=== PATIENT | male | born 1985 | race Caucasian/White ===

== ENCOUNTER 2024-09-09 22:04 | Emergency (ER) | payer OTHER, SELFPAY ==
[2024-09-09 22:10] VITALS: BP 149/98; PULSE 100; RESP 20; TEMP 36.3; O2SAT 100
[2024-09-09 22:32] LABS: Basophils Percent Auto 0.8 % (0.2-1.2); Eosinophils Absolute Auto 0.2 K/mm3 (0-0.3); Eosinophils Percent Auto 3.5 % (0-4.4); Hematocrit 43.1 % (42.0-52.0); Hemoglobin 14.6 g/dL (14.0-18.0); Immature Granulocyte Absolute 0.02 K/mm3 (0.00-0.031); Immature Granulocyte Percent A 0.4 % (0-0.5); Lymphocytes Absolute Auto 1.58 K/mm3 (0.9-3.2); Lymphocytes Percent Auto 32.6 % (18.3-44.2); Mean Corpuscular HGB Conc 33.9 g/dl (32-36); Mean Corpuscular Hemoglobin 29.8 pg (26-34); Mean Platelet Volume 8.7 fl (7.4-10.4); Monocytes Absolute Auto 0.5 K/mm3 (0.1-0.6); Monocytes Percent Auto 10.1 % (2.6-8.5); Neutrophils Absolute Auto 2.5 K/mm3 (1.3-6.7); Neutrophils Percent Auto 52.6 % (45.5-73.1); Platelet Count Result 358 k/mm3 (150-375); Red Cell Distribution Width 12.4 % (11.5-14.5); White Blood Count 4.8 K/mm3 (4.5-10.0)
[2024-09-09 22:44] LABS: Alanine Aminotransferase 22 U/L (6-50); Albumin Level 4.8 g/dL (3.5-5.1); Alkaline Phosphatase 96 U/L (38-126); Anion Gap 13 mmol/L (4-12); Aspartate Amino Transferase 30 U/L (17-59); Bilirubin,Total 0.7 mg/dL (0.2-1.3); Blood Urea Nitrogen 17 mg/dL (9-20); Calcium 9.8 mg/dL (8.4-10.2); Carbon Dioxide 26 mmol/L (22-30); Chloride 100 mmol/L (98-107); Estimated CRCL calculation 100 ml/min; Estimated Glomerular Filt Rate > 60; Glucose 121 mg/dL (65-110); Lipase 75 U/L (23-300); Potassium 3.6 mmol/L (3.4-5.0); Sodium 139 mmol/L (137-145)
[2024-09-09 23:21] LABS: Add Urine Microscopic? NO; Appearance Urine Clear (Clear); Bilirubin Urine Negative (Negative); Blood Urine Negative (Negative); Color Urine Yellow (Yellow); Glucose Urine UA Negative (Negative); Ketones Urine Trace mg/dL (Negative); Leukocyte Esterase Ur Negative LEU/UL (Negative); Nitrate Urine Negative (Negative); Protein Urine Negative (Negative); Specific Grav Ur 1.024 (1.001-1.035); pH Urine 6.5 (5.0-9.0)
[2024-09-10] MEDS: SODIUM CHLORIDE 0.9% IV 1,000 ML 999 ML IV CONT (00:26)
--- NOTE | 2024-09-10 00:27 | ECG_ITS ---
Test Date: 2024-09-10 01:02:26 Measurements Intervals [place] Rate: 87 P: 58 MO: 166 QRS: 13 QRSD: 102 T: -13 QT: 352 QTc: 424 Interpretive Statements SINUS RHYTHM POSSIBLE LEFT ATRIAL ENLARGEMENT [-0.1mV P WAVE IN V1/V2] LOW QRS VOLTAGE IN PRECORDIAL LEADS [QRS DEFLECTION < 1.0 mV IN CHEST LEADS] NONSPECIFIC T-WAVE ABNORMALITY No previous ECG available for comparison Electronically Signed On 09-10-2024 10:43:47 PR MANAGER by Micheal Molina M.D.
[2024-09-10] MEDS: MORPHINE SULFATE (*CRX) 4 MG/ML INJ IV PUSH (00:32)
[2024-09-10] MEDS: FAMOTIDINE 20 MG/2 ML VIAL IV PUSH (00:32)
[2024-09-10] MEDS: ONDANSETRON INJ 4 MG/2 ML VIAL IV PUSH (00:32)
--- NOTE | 2024-09-10 00:36 | ED_ITS ---
HPI - Abdominal Pain General Chief Complaint: Abdominal Pain Stated Complaint: Upper R abd pain Time Seen by Provider: 09/10/24 00:04 Related Data Allergies Allergy/AdvReac Type Severity Reaction Status Date / Time No Known Allergies Allergy Verified 09/09/24 22:04 [facility] Family History Family History (System 01/24/24 @ 15:46 by Michael Patterson) Other Diabetes mellitus Family history of coronary artery disease Family history of malignant neoplasm of breast Malignant neoplasm of prostate Social History Social History (System 01/24/24 @ 15:46 by Michael Patterson) Smoking status: Never smoker Course Vital Signs Vital signs: Vital Signs Temperature 97.4 F L 09/09/24 22:10 Pulse Rate 100 09/09/24 22:10 Respiratory Rate 09/09/24 22:10 Blood Pressure 149/98 H 09/09/24 22:10 Pulse Oximetry 100 09/09/24 22:10 Oxygen Delivery Room Air 09/09/24 22:10 Temperature 97.4 F L 09/09/24 22:10 Pulse Rate 100 09/09/24 22:10 Respiratory Rate 09/09/24 22:10 Blood Pressure 149/98 H 09/09/24 22:10 Pulse Oximetry 100 09/09/24 22:10 Oxygen Delivery Room Air 09/09/24 22:10 MDM - Abdominal Pain Lab Data 09/09/24 22:15 09/09/24 22:15 Labs: Lab Results 09/09/24 09/09/24 Range/Units 22:15 23:09 WBC 4.8 (4.5-10.0) K/mm3 RBC 4.90 (4.6-6.20) M/mm3 Hgb 14.6 (14.0-18.0) g/dL Hct 43.1 (42.0-52.0) % MCV 88.0 (80-100) fl MCH 29.8 (26-34) pg MCHC 33.9 (32-36) g/dl RDW 12.4 (11.5-14.5) % Plt Count 358 (150-375) k/mm3 MPV 8.7 (7.4-10.4) fl Immature Gran % (Auto) 0.4 (0-0.5) % Neut % (Auto) 52.6 (45.5-73.1) % Lymph % (Auto) 32.6 (18.3-44.2) % [place] % (Auto) 10.1 H (2.6-8.5) % Eos % (Auto) 3.5 (0-4.4) % Baso % (Auto) 0.8 (0.2-1.2) % Lymph # (Auto) 1.58 (0.9-3.2) K/mm3 [place] # (Auto) 0.5 (0.1-0.6) K/mm3 Eos # (Auto) 0.2 (0-0.3) K/mm3 Baso # (Auto) 0.0 (0.0-0.1) K/mm3 Abs Immat Gran (auto) 0.02 (0.00-0.031) K/mm3 Absolute Neuts (auto) 2.5 (1.3-6.7) K/mm3 Absolute Nucleated RBC 0.000 (0.0-0.012) K/mm3 Nucleated RBC % 0.0 (0.0-0.2) % Sodium 139 (137-145) mmol/L Potassium 3.6 (3.4-5.0) mmol/L Chloride 100 (98-107) mmol/L Carbon Dioxide 26 (22-30) mmol/L Anion Gap 13 H (4-12) mmol/L BUN 17 (9-20) mg/dL Creatinine 0.92 (0.7-1.3) mg/dL Estim Creat Clear Calc 100 ml/min Estimated GFR > 60 (59 - ) Glucose 121 H (65-110) mg/dL Calcium 9.8 (8.4-10.2) mg/dL Total Bilirubin 0.7 (0.2-1.3) mg/dL AST 30 (17-59) U/L ALT 22 (6-50) U/L Alkaline Phosphatase 96 (38-126) U/L Total Protein 8.0 (6.3-8.2) g/dL Albumin 4.8 (3.5-5.1) g/dL Lipase 75 (23-300) U/L Urine Color Yellow (Yellow) Urine Appearance Clear (Clear) Urine pH 6.5 (5.0-9.0) Ur Specific [place] 1.024 (1.001-1.035) Urine Protein Negative (Negative) mg/dL Urine Glucose (UA) Negative (Negative) mg/dL Urine Ketones Trace H (Negative) mg/dL Ur Blood (Man) Negative (Negative) Urine Nitrate Negative (Negative) Urine Bilirubin Negative (Negative) Urine Urobilinogen 1.0 (<2.0) mg/dL Leukocyte Esterase Rfl Negative (Negative) DARRICK/UL Discharge Plan Discharge Instructions: Antibiotic Form Patient Language: Sami Follow-up/Referrals: Rudy Braswell MD [Primary Care Provider] -
--- NOTE | 2024-09-10 00:36 | ED_ITS ---
HPI - Abdominal Pain General Chief Complaint: Abdominal Pain Stated Complaint: Upper R abd pain Time Seen by Provider: 09/10/24 00:04 History of Present Illness HPI narrative: Patient is a 39-year-old male who presents to the emergency department this evening accompanied by his complaining of right upper quadrant abdominal pain. Patient describes the pain as sharp and stabbing. States that it started last night and then returned again this evening. does admit that the patient has a diet consistent of a lot of greasy food. She states that she recently had her gallbladder taking out and her symptoms are very similar to his symptoms. Patient denies any nausea or vomiting and any fevers or chills at home. No additional symptoms or concerns at this time. Related Data Allergies Allergy/AdvReac Type Severity Reaction Status Date / Time No Known Allergies Allergy Verified 09/09/24 22:04 Review of Systems 2 Review of Systems: All systems are reviewed and are negative unless stated otherwise in the HPI. PMFSH Family History Family History Other Diabetes mellitus Family history of coronary artery disease Family history of malignant neoplasm of breast Malignant neoplasm of prostate Social History Social History Smoking status: Never smoker Exam 2 Narrative: General: Alert, awake, afebrile, in no acute distress. HEENT: PERRL, no rhinorrhea, no post nasal drip, oropharynx clear. Neck: Trachea midline, no JVD, no lymphadenopathy. Cardiovascular: Regular rate and rhythm, no murmurs, rubs or gallops, no peripheral edema. Respiratory: Clear to auscultation bilaterally, no tachypnea, no wheezing, no rhonchi, no rubs, no respiratory distress. Abdomen: Soft, mild tenderness to palpation over the right upper quadrant, nondistended, no rebound, no guarding, no peritoneal signs. Musculoskeletal: No joint swelling or deformity, normal muscle tone. Skin: No rashes or petechia, no signs of infection. Psychiatric: Alert and oriented, normal behavior and judgment for situation. Neurological: Alert and oriented to person, place, and time. Follows all commands. No focal deficits, speech is clear and fluent. Course Vital Signs Vital signs: Vital Signs Temperature 97.4 F L 09/09/24 22:10 Pulse Rate 100 09/09/24 22:10 Respiratory Rate 20 09/09/24 22:10 Blood Pressure 149/98 H 09/09/24 22:10 Pulse Oximetry 100 09/09/24 22:10 Oxygen Delivery Room Air 09/09/24 22:10 Temperature 97.4 F L 09/09/24 22:10 Pulse Rate 77 09/10/24 01:32 Respiratory Rate 15 09/10/24 01:32 Blood Pressure 136/80 09/10/24 01:32 Pulse Oximetry 100 09/10/24 01:32 Oxygen Delivery Room Air 09/09/24 22:10 MDM - Abdominal Pain MDM Narrative Medical decision making narrative: The patient was evaluated by myself in the emergency department. History is obtained from patient who is an independent historian and physical exam was performed. External medical records were reviewed at this time. IV was established and pertinent tests were ordered. Patient was administered 4 mg of IV morphine for pain and 4 mg IV Zofran for nausea, 20 mg of IV Pepcid, and 1 L IV fluid bolus with normal saline. EKG was obtained which revealed sinus rhythm rate of 87 beats per minute, no evidence of acute ischemia. EKG was independently interpreted by me and is currently pending official cardiology read. Laboratory results obtained revealing no acute process. At this time, medical decision-making with the patient regarding obtaining CT abdomen and pelvis with IV contrast for further evaluation of his symptoms was discussed. Patient does not want wait for CT and is agreeable with following up with GI as an outpatient or his primary care physician to obtain a right upper quadrant ultrasound. Differential diagnosis considerations include biliary colic, cholecystitis, pancreatitis, gastritis. Comorbidities impacting this visit include none. I have evaluated and discussed social determinants of health with the patient that could potentially impact subsequent diagnosis and treatment plans. On repeat assessment of the patient, reevaluation revealed that the patient is doing well and is in no acute distress. Patient symptoms have improved since he arrived to our emergency department. Repeat vital signs were all reviewed and noted to be stable. Differential diagnosis and treatment plan were discussed with the patient at bedside. Patient agrees with discussion and after shared medical decision making agrees with discharge. All questions were answered to the patient's satisfaction. Patient will follow up with GI in 3-5 days. Patient was provided with strict return precautions and instructed to return to the emergency department if any new or worsening symptoms develop. The patient was discharged in stable condition. Lab Data 09/09/24 22:15 09/09/24 22:15 Labs: Lab Results 09/09/24 09/09/24 Range/Units 22:15 23:09 WBC 4.8 (4.5-10.0) K/mm3 RBC 4.90 (4.6-6.20) M/mm3 Hgb 14.6 (14.0-18.0) g/dL Hct 43.1 (42.0-52.0) % MCV 88.0 (80-100) fl MCH 29.8 (26-34) pg MCHC 33.9 (32-36) g/dl RDW 12.4 (11.5-14.5) % Plt Count 358 (150-375) k/mm3 MPV 8.7 (7.4-10.4) fl Immature Gran % (Auto) 0.4 (0-0.5) % Neut % (Auto) 52.6 (45.5-73.1) % Lymph % (Auto) 32.6 (18.3-44.2) % [place] % (Auto) 10.1 H (2.6-8.5) % Eos % (Auto) 3.5 (0-4.4) % Baso % (Auto) 0.8 (0.2-1.2) % Lymph # (Auto) 1.58 (0.9-3.2) K/mm3 [place] # (Auto) 0.5 (0.1-0.6) K/mm3 Eos # (Auto) 0.2 (0-0.3) K/mm3 Baso # (Auto) 0.0 (0.0-0.1) K/mm3 Abs Immat Gran (auto) 0.02 (0.00-0.031) K/mm3 Absolute Neuts (auto) 2.5 (1.3-6.7) K/mm3 Absolute Nucleated RBC 0.000 (0.0-0.012) K/mm3 Nucleated RBC % 0.0 (0.0-0.2) % Sodium 139 (137-145) mmol/L Potassium 3.6 (3.4-5.0) mmol/L Chloride 100 (98-107) mmol/L Carbon Dioxide 26 (22-30) mmol/L Anion Gap 13 H (4-12) mmol/L BUN 17 (9-20) mg/dL Creatinine 0.92 (0.7-1.3) mg/dL Estim Creat Clear Calc 100 ml/min Estimated GFR > 60 (59 - ) Glucose 121 H (65-110) mg/dL Calcium 9.8 (8.4-10.2) mg/dL Total Bilirubin 0.7 (0.2-1.3) mg/dL AST 30 (17-59) U/L ALT 22 (6-50) U/L Alkaline Phosphatase 96 (38-126) U/L Total Protein 8.0 (6.3-8.2) g/dL Albumin 4.8 (3.5-5.1) g/dL Lipase 75 (23-300) U/L Urine Color Yellow (Yellow) Urine Appearance Clear (Clear) Urine pH 6.5 (5.0-9.0) Ur Specific [place] 1.024 (1.001-1.035) Urine Protein Negative (Negative) mg/dL Urine Glucose (UA) Negative (Negative) mg/dL Urine Ketones Trace H (Negative) mg/dL Ur Blood (Man) Negative (Negative) Urine Nitrate Negative (Negative) Urine Bilirubin Negative (Negative) Urine Urobilinogen 1.0 (<2.0) mg/dL Leukocyte Esterase Rfl Negative (Negative) DARRICK/UL Discharge Plan Discharge Clinical Impression: Abdominal pain, acute, right upper quadrant Patient Disposition: Home, Self-Care Condition: Improved Instructions: Antibiotic Form, Biliary Colic (ED), Abdominal Pain (ED) Additional Instructions: Please follow-up with the GI doctor you were provided with today. Return to the ED if any new or worsening symptoms develop. In the meantime, refrain from eating greasy/fatty food. You may need an outpatient gallbladder ultrasound for further evaluation of your gallbladder. Patient Language: Kiswahili Follow-up/Referrals: Rudy Braswell MD [Primary Care Provider] - 1 Week Dell Bourgeois MD [Physician] - 3 Days Time of Disposition: 00:53
[2024-09-10 01:32] VITALS: BP 136/80; PULSE 77; RESP 15; O2SAT 100
--- OUTSIDE RECORDS SUMMARY | 2024-09-12 15:09 | XMS_ITS | Patient Health Summary ---
Author Organization [facility] Address [address] [place] [address] Care Team Providers Care Supervisor Metal Fabricating Name Role Phone Robert Howell MD Primary Care Provider [phone] Note from [facility],non-owned Affiliates and Associated Physician Practices is amultiple site organization consisting of ambulatory clinics and hospital sitesin [place], [place], [place] and [place]. This disclosure is being madepursuant to the Care Everywhere program and may not contain all information available regarding this patient. Last updated 18.[facility] Allergies No known active allergies Immunizations * INFLUENZA VACCINE, QUADR. (FLUZONE; FLULAVAL; FLUARIX; AFLURIA QUADRIVALENT; 6MO+), 0.5 ML (IIV4)(Given 06/01/2018) Social History Tobacco Use Types Packs/Day Years Used Date Smoking Tobacco: Never Assessed Sex and Gender Information Value Date Recorded Sex Assigned at Not on file Gender Identity Not on file Sexual Orientation Not on file Care Teams Supervisor Metal Fabricating Relationship Specialty Start Date End Date Robert Howell MD PCP - General Internal Medicine 06/01/18
--- OUTSIDE RECORDS SUMMARY | 2024-09-12 15:09 | XMS_ITS | Clinical Summary ---
Author Organization [facility] Address [address] [place] [address]. [place], [place] [id number] [place] [id number] Care Team Providers Care Managed Care Specialist Name Role Phone Unavailable Primary Care Provider Unavailabl e Social History Tobacco Use Types Packs/Day Years Used Date Smoking Tobacco: Never Assessed Sex and Gender Information Value Date Recorded Sex Assigned at Not on file Legal Sex Male 4:33 PM CDT Gender Identity Not on file Sexual Orientation Not on file Plan of Treatment Health Maintenance Due Date Last Done Comments Annual Physical 02/21/1987 Hepatitis C 02/21/2002 DTaP, Tdap and Td Vaccines ( 1 - Tdap) 02/21/2003 Hepatitis B Vaccines (1 of 3 - 19+ 3-dose series) 02/21/2003 COVID-19 Vaccine (2023-2 5 season) 2024 Influenza Adult (#1) 2024 HPV Vaccines Aged Out No longer eligi ble based on patient's age to complete this topic Meningococcal Vaccine Aged Out No desiree miracle eligible based on patient's age to complete this topic Pneumococcal Vaccine: Pediat rics (0 to 5 Years) and At-Risk Patients (6 to 64 Years) Aged Out No longer eligible b ased on patient's age to complete this topic RSV Immunizations Under 20 Months Aged Out No longer eligible based on patient's age to complete this topic
--- OUTSIDE RECORDS SUMMARY | 2024-09-12 15:09 | XMS_ITS | Clinical Summary ---
Author Organization [facility] Address [address] [place] [address] Care Team Providers Care Dental Specialist Name Role Phone Robert Howell MD Primary Care Provider [phone] Source Comments [facility],non-owned Affiliates and Associated Physician Practices is amultiple site organization consisting of ambulatory clinics and hospital sitesin [place], [place], [place] and [place]. This disclosure is being madepursuant to the Care Everywhere program and may not contain all information available regarding this patient. Last updated 18.[facility] [employer] Allergies No known active allergies Immunizations Name Administration Dates Next Due INFLUENZA VACCINE, QUADR. (F LUZONE; FLULAVAL; FLUARIX; AFLURIA QUADRIVALENT; 6MO+), 0.5 ML (IIV4) 06/01/2018 Social History Tobacco Use Types Packs/Day Years Used Date Smoking Tobacco: Never Assessed Sex and Gender Information Value Date Recorded Sex Assigned at Not on file Gender Identity Not on file Sexual Orientation Not on file Plan of Treatment Health Maintenance Due Date Last Done Comments LIPID TESTING 1984 HIV SCREENING 02/21/1999 HEPATITIS C SCREENING 02/17/2002 DTAP/TDAP/TD VACCINES (1 - Tdap) 02/21/2003 HEPATITIS B VACCINE (1 of 3 - 19+ 3-dose series) 02/21/2003 COVID-19 VACCINE ( - 2023-2 5 season) 2024 INFLUENZA VACCINE (#1) 2024 06/01/2018 DEPRESSION SCREENING 08/21/2024 ZOSTER VACCINE (1 of 2) 02/21/2034 HIB VACCINE Aged Out No longer eligi ble based on patient's age to complete this topic HPV VACCINE Aged Out No longer eligi ble based on patient's age to complete this topic MENINGOCOCCAL (Group B) VACCINE Aged Out No longer eligible based on patient's age to complete this topic MENINGOCOCCAL VACCINE Aged Out No desiree miracle eligible based on patient's age to complete this topic PNEUMOCOCCAL VACCINE Aged Out No long er eligible based on patient's age to complete this topic Care Teams Dental Specialist Relationship Specialty Start Date End Date Robert Howell MD PCP - General Internal Medicine 06/01/18
--- OUTSIDE RECORDS SUMMARY | 2024-09-12 15:09 | XMS_ITS | Referral Summary ---
Author Organization [facility] Address [address] [place] [address] Care Team Providers Care Gamb Cutter Name Role Phone No, Physician Primary Care Provider [phone] No, Physician Unavailable Encounters Date Type Department Care Team Description 09/10/2024 Orders Only [facility] [address] [place] [address] [address] [place] [address] Robert Howell MD from Last 3 Months Allergies No known active allergies Medications No known medications Active Problems No known active problems Social History Tobacco Use Types Packs/Day Years Used Date Smoking Tobacco: Never Tobacco Cessation:Counseling Given: Not Answered Sex and Gender Information Value Date Recorded Sex Assigned at Not on file Legal Sex Male 10:27 AM ANODE BUILDER Gender Identity Male 08/04/2022 1:42 PM ANODE BUILDER Sexual Orientation Straight 08/04/2022 1: 42 PM ANODE BUILDER Last Filed Vital Signs Vital Sign Reading Time Taken Comments Blood Pressure 119/86 08/04/2022 9:37 AM ANODE BUILDER Pulse 101 08/04/2022 9:37 AM ANODE BUILDER Temperature 36.8 ??C (98.3 ??F) 08/04/2022 9:37 AM CS T Respiratory Rate 16 08/04/2022 9:37 AM ANODE BUILDER Oxygen Saturation 95% 08/04/2022 9:37 AM ANODE BUILDER Inhaled Oxygen Concentration - - Weight 91.2 kg (201 lb) 08/04/2022 9:37 AM ANODE BUILDER Height 177.8 cm (5' 10 ) 08/04/2022 9:37 AM ANODE BUILDER Body Mass Index 28.84 08/04/2022 9:37 AM ANODE BUILDER Plan of Treatment Not on file Procedures Procedure Name Priority Date/Time Associated Diagnosis Comments SCAN - LABS 09/10/2024 8:46 AM ANODE BUILDER from Last 3 Months Results * SCAN - LABS (09/10/2024 8:46 AM ANODE BUILDER) Robert Howell MD Final Result from Last 3 Months Insurance [facility] CHO[facility] PLUS [facility] [place] Address: [place] [address] [employer] [place] [employer] Address: [id number] [place] [address] [facility] [employer] [facility] [place] Address: [address] [address] [place] [address] [facility] [employer] [facility] [place] Address: [address] [address] [place] [phone] Care Teams Gamb Cutter Relationship Specialty Start Date End Date No, Physician PCP - General 08/04/22 No, Physician 08/04/22
--- OUTSIDE RECORDS SUMMARY | 2024-09-12 15:09 | XMS_ITS | Clinical Summary ---
Author Organization [facility] Address [address] [place] [address] Care Team Providers Care Devops Developer Name Role Phone No, Physician Primary Care Provider [phone] No, Physician Unavailable Allergies No known active allergies Medications No known medications Active Problems No known active problems Encounters Date Type Department Care Team Description 09/10/2024 Orders Only [facility] [address] [place] [address] Robert Howell MD from Last 3 Months Social History Tobacco Use Types Packs/Day Years Used Date Smoking Tobacco: Never Tobacco Cessation:Counseling Given: Not Answered Sex and Gender Information Value Date Recorded Sex Assigned at Not on file Legal Sex Male 10:27 AM IT SECURITY CONSULTANT Gender Identity Male 08/04/2022 1:42 PM IT SECURITY CONSULTANT Sexual Orientation Straight 08/04/2022 1: 42 PM IT SECURITY CONSULTANT Obstetrics History Last Filed Vital Signs Vital Sign Reading Time Taken Comments Blood Pressure 119/86 08/04/2022 9:37 AM IT SECURITY CONSULTANT Pulse 101 08/04/2022 9:37 AM IT SECURITY CONSULTANT Temperature 36.8 ??C (98.3 ??F) 08/04/2022 9:37 AM CS T Respiratory Rate 16 08/04/2022 9:37 AM IT SECURITY CONSULTANT Oxygen Saturation 95% 08/04/2022 9:37 AM IT SECURITY CONSULTANT Inhaled Oxygen Concentration - - Weight 91.2 kg (201 lb) 08/04/2022 9:37 AM IT SECURITY CONSULTANT Height 177.8 cm (5' 10 ) 08/04/2022 9:37 AM IT SECURITY CONSULTANT Body Mass Index 28.84 08/04/2022 9:37 AM IT SECURITY CONSULTANT Plan of Treatment Health Maintenance Due Date Last Done Comments Depression Screening 1984 Hepatitis C Screening 1984 DTaP/Tdap/Td Vaccine (1 - Tdap) 02/21/1995 Varicella Vaccines (1 of 2 - 13+ 2-dose series) 02/21/1997 Hepatitis B Screening 02/21/2002 Regular Well Visit/Exam 18-64 02/21/2002 Covid-19 Vaccine ( - 2023- season) 2024 06/08/2021, 10/27/2020, 10/06/2020 Influenza Vaccine (#1) 2024 , 06/11/2020, 06/14/2019, Additional history exists HPV Vaccines Aged Out No longer eligi ble based on patient's age to complete this topic Pneumococcal vaccine <65 Aged Out No longer eligible based on patient's age to complete this topic Procedures Procedure Name Priority Date/Time Associated Diagnosis Comments SCAN - LABS 09/10/2024 8:46 AM IT SECURITY CONSULTANT from Last 3 Months Results * SCAN - LABS (09/10/2024 8:46 AM IT SECURITY CONSULTANT) us Robert Howell MD Final Result from Last 3 Months Insurance [facility] CHOICE PLUS [facility] HMO/PPO Address: [facility] [address] [place] [address] [facility] CHOICE PLUS [facility] HMO/PPO Address: [phone] [place], [place] [phone] [facility] CHOICE PLUS [facility] HMO/PPO Address: [address] [address] [place] [address] [facility] CHOICE PLUS [facility] HMO/PPO Address: [address] [address] [place] [phone] Care Teams Devops Developer Relationship Specialty Start Date End Date No, Physician PCP - General 08/04/22 No, Physician 08/04/22
--- OUTSIDE RECORDS SUMMARY | 2024-09-12 15:09 | XMS_ITS | Clinical Summary ---
Author Organization [facility] Address [address] [place] [address] Phone Care Team Providers Care Associate Professor Of Literacy Name Role Phone Robert Howell MD Primary Care Provider [phone] Social History Tobacco Use Types Packs/Day Years Used Date Smoking Tobacco: Never Assessed Sex and Gender Information Value Date Recorded Sex Assigned at Not on file Legal Sex Male 7:13 AM THEATRE ARTS PROFESSOR Gender Identity Not on file Sexual Orientation Not on file Plan of Treatment Health Maintenance Due Date Last Done Comments Hepatitis C Virus (HCV) Screening 1984 TdaP Immunization 1984 Hepatitis B Immunization (1 of 3 - 19+ 3-dose series) 02/21/2003 Influenza Immunization (#1) 2024 SARS-COV-2 Immunization ( season) 2024 Respiratory Syncytial Virus (RSV) Immunization (Adult) (1 - 1-dose 75+ series) 02/21/2059 Meningococcal Immunization (ACWY) Aged Out No longer eligible based on patient's age to complete this topic Pneumococcal Immunization Combined Aged Out No longer eligible based on patient's age to complete this topic Rotavirus Immunization Aged Out No lo nger eligible based on patient's age to complete this topic Insurance [employer] [place] Care Teams Associate Professor Of Literacy Relationship Specialty Start Date End Date Robert Howell MD PCP - General Internal Medicine 10/16/15
--- OUTSIDE RECORDS SUMMARY | 2024-09-12 15:09 | XMS_ITS | Referral Summary ---
Author Organization [facility] Address [address] [place] [address] Care Team Providers Care Lotus Notes Administrator Name Role Phone Robert Howell MD Primary Care Provider Source Comments [facility],non-owned Affiliates and Associated Physician Practices is amultiple site organization consisting of ambulatory clinics and hospital sitesin [place], [place], [place] and [place]. This disclosure is being madepursuant to the Care Everywhere program and may not contain all information available regarding this patient. Last updated 18.[facility] [employer] Allergies No known active allergies Immunizations Name [...] Orientation Not on file Plan of Treatment Not on file Care Teams Lotus Notes Administrator Relationship Specialty Start Date End Date Robert Howell MD PCP - General Internal Medicine 06/01/18
== END 2024-09-10 01:35 | disposition home or self-care (01) ==
PROVIDERS: Emergency Provider Emergency Medicine; PCP Family Medicine
DX: R10.11 Right upper quadrant pain (principal)
CPT/HCPCS: 36415; 80053; 81003; 83690; 85025; 93005; 96361; 96374; 96375; 99284; J2270; J2405; J7030

== ENCOUNTER 2024-10-24 00:56 | Day surgery (SDC) | payer OTHER, SELFPAY ==
[2024-10-16 15:06] VITALS: BMI 27.0
--- NOTE | 2024-10-16 15:15 | PC.NURSE ---
Report to the Outpatient Waiting Room, entrance under the green pavilion located off [facility], at time __1000am on date _10/24/24 . Planned Procedure Time: _1200pm .? Time changes happen often and if your time is changed the preop area will call you the afternoon before. - You and your visitor will be asked to self-screen and do not enter if you have any COVID symptoms. Please call surgeon if you need to reschedule. - A mask is optional within the hospital at this time. Patients may have clear liquids (water, carbonated beverages, clear teas, apple juice) until 3 hours prior to surgery with a maximum of 20 ounces. - No food from midnight until time of surgery and no smoking, or chewing tobacco (or any form of nicotine). No chewing gum, candy or mints. (0900am) Take only the following medications with a SIP of water on the morning of surgery: None DO NOT STOP ANY OF YOUR OTHER PRESCRIPTION MEDICATIONS PRIOR TO SURGERY EXCEPT THE FOLLOWING Hold all vitamins and supplements for 3 days per anesthesiologist.Date to take last dose 10/20/24 Medications to discontinue per physician None Please no make-up, nail lao, hairspray, perfume, deodorant, or body powder the day of surgery.? No jewelry (including any body piercings) or valuables the day of surgery, leave them at home.? Please take a shower or bath the night before, or the morning of, surgery with an antibacterial soap.? Wear comfortable, loose fitting clothing.? - Jewelry must be removed prior to entering the operating room.? Rings and piercings that are not removed may be cut off. - The hospital will not accept responsibility for valuables.? - Please leave all valuables, including medications, at home the day of surgery. If you are going home after surgery, a licensed truck driver rubbish collector must drive you home.? - NO public transportation without another adult if you receive anesthesia. - We recommend that an adult stay with you for 24 hours following discharge. - We also recommend that you do not drive, make important decision, drink alcoholic beverages, or take any drugs that were not prescribed by your health care provider for at least 24 hours after your discharge time. Follow any additional instructions given to you from your surgeon. Telephone instructions given to __Patient and asked if any additional questions and then verbalized understanding. Patient advised to call surgeon office or pre surgery nurse liaison [phone] if any additional questions.
[2024-10-24] VITALS (8 sets, daily range): BP systolic 118–139; BP diastolic 81–93; PULSE 82–110; RESP 14–20; TEMP 36.9–37.1; O2SAT 97–100; BMI 27.4
--- OUTSIDE RECORDS SUMMARY | 2024-10-24 00:58 | XMS_ITS | Clinical Summary ---
Author Organization [facility] Address [facility] [place] [address] Care Team Providers Care Reference Librarian Name Role Phone Unavailable Primary Care Provider [...] patient's age to complete this topic Meningococcal B Vaccine Aged Out No l onger eligible based on patient's age to complete [...]
--- OUTSIDE RECORDS SUMMARY | 2024-10-24 00:58 | XMS_ITS | Clinical Summary ---
Author Organization [facility] Address [address] [place] [address] Care Team Providers Care Intertype Operator Name Role Phone No, Physician Primary Care Provider [phone] No, Physician Unavailable Allergies No known active allergies Medications No known medications Active Problems No known active problems Encounters Date Type Department Care Team Description 09/10/2024 Orders Only [facility] [address] [place] [address] [address] [place] [address] Robert Howell MD from Last 3 Months Social History Tobacco Use Types Packs/Day Years Used Date Smoking Tobacco: Never Tobacco Cessation:Counseling Given: Not Answered Sex and Gender Information Value Date Recorded Sex Assigned at Not on file Legal Sex Male 10:27 AM ORTHOPEDIC SHOE MAKER Gender Identity Male 08/04/2022 1:42 PM ORTHOPEDIC SHOE MAKER Sexual Orientation Straight 08/04/2022 1: 42 PM ORTHOPEDIC SHOE MAKER Obstetrics History Last Filed Vital Signs Vital Sign Reading Time Taken Comments Blood Pressure 119/86 08/04/2022 9:37 AM ORTHOPEDIC SHOE MAKER Pulse 101 08/04/2022 9:37 AM ORTHOPEDIC SHOE MAKER Temperature 36.8 C (98.3 F) 08/04/2022 9:37 AM ORTHOPEDIC SHOE MAKER Respiratory Rate 16 08/04/2022 9:37 AM ORTHOPEDIC SHOE MAKER Oxygen Saturation 95% 08/04/2022 9:37 AM ORTHOPEDIC SHOE MAKER Inhaled Oxygen Concentration - - Weight 91.2 kg (201 lb) 08/04/2022 9:37 AM ORTHOPEDIC SHOE MAKER Height 177.8 cm (5' 10 ) 08/04/2022 9:37 AM ORTHOPEDIC SHOE MAKER Body Mass Index 28.84 08/04/2022 9:37 AM ORTHOPEDIC SHOE MAKER Plan of Treatment Health Maintenance Due Date Last Done Comments Depression Screening 1984 Hepatitis C Screening 1984 DTaP/Tdap/Td Vaccine (1 - Tdap) 02/21/1995 Varicella Vaccines (1 of 2 - 13+ 2-dose series) 02/21/1997 Hepatitis B Screening 02/21/2002 Regular Well Visit/Exam 18-64 02/21/2002 Covid-19 Vaccine (4 - 2023- season) 2024 06/08/2021, 10/27/2020, 10/06/2020 Influenza Vaccine (#1) 2024 , 06/11/2020, 06/14/2019, Additional history exists HPV Vaccines Aged Out No longer eligi ble based on patient's age to complete this topic Pneumococcal vaccine <65 Aged Out No longer eligible based on patient's age to complete this topic Procedures Procedure Name Priority Date/Time Associated Diagnosis Comments SCAN - LABS 09/10/2024 8:46 AM ORTHOPEDIC SHOE MAKER from Last 3 Months Results * SCAN - LABS (09/10/2024 8:46 AM ORTHOPEDIC SHOE MAKER) us Robert Howell MD Final Result from Last 3 Months Insurance [facility] PLUS [facility] PLUS [facility] PLUS [facility] CHO[facility] PLUS Care Teams Intertype Operator Relationship Specialty Start Date End Date No, Physician PCP - General 08/04/22 No, Physician 08/04/22
--- OUTSIDE RECORDS SUMMARY | 2024-10-24 00:58 | XMS_ITS | Referral Summary ---
Author Organization [facility] Address [address] [place] [address] Care Team Providers Care Meat Butcher Name Role Phone No, Physician Primary Care Provider [phone] No, Physician Unavailable Encounters Date Type Department Care Team Description 09/10/2024 Orders Only [facility] [address] [place] [address] [address] [place] [address] Robert Howell MD from Last 3 Months Allergies No known active allergies Medications No known medications Active Problems No known active problems Social History Tobacco Use Types Packs/Day Years Used Date Smoking Tobacco: Never Tobacco Cessation:Counseling Given: Not Answered Sex and Gender Information Value Date Recorded Sex Assigned at Not on file Legal Sex Male 10:27 AM DISTANCE LEARNING PROGRAM COORDINATOR Gender Identity Male 08/04/2022 1:42 PM DISTANCE LEARNING PROGRAM COORDINATOR Sexual Orientation Straight 08/04/2022 1: 42 PM DISTANCE LEARNING PROGRAM COORDINATOR Last Filed Vital Signs Vital Sign Reading Time Taken Comments Blood Pressure 119/86 08/04/2022 9:37 AM DISTANCE LEARNING PROGRAM COORDINATOR Pulse 101 08/04/2022 9:37 AM DISTANCE LEARNING PROGRAM COORDINATOR Temperature 36.8 C (98.3 F) 08/04/2022 9:37 AM DISTANCE LEARNING PROGRAM COORDINATOR Respiratory Rate 16 08/04/2022 9:37 AM DISTANCE LEARNING PROGRAM COORDINATOR Oxygen Saturation 95% 08/04/2022 9:37 AM DISTANCE LEARNING PROGRAM COORDINATOR Inhaled Oxygen Concentration - - Weight 91.2 kg (201 lb) 08/04/2022 9:37 AM DISTANCE LEARNING PROGRAM COORDINATOR Height 177.8 cm (5' 10 ) 08/04/2022 9:37 AM DISTANCE LEARNING PROGRAM COORDINATOR Body Mass Index 28.84 08/04/2022 9:37 AM DISTANCE LEARNING PROGRAM COORDINATOR Plan of Treatment Not on file Procedures Procedure Name Priority Date/Time Associated Diagnosis Comments SCAN - LABS 09/10/2024 8:46 AM DISTANCE LEARNING PROGRAM COORDINATOR from Last 3 Months Results * SCAN - LABS (09/10/2024 8:46 AM DISTANCE LEARNING PROGRAM COORDINATOR) Robert Howell MD Final Result from Last 3 Months Insurance [facility] CHO[facility] PLUS [facility] PLUS Member Subscriber Plan / Payer (Ef fective 2021-Present) Name:Valentin Miller Relation to Subscriber:Self Name:Valentin Miller Payer ID:[id number] (NAIC) Type:[facility] HMO/PPO Address: [place] [id number] [facility] CHOICE PLUS Member Subscriber Plan / Payer (Ef fective 2021-Present) Name:Valentin Miller Relation to Subscriber:Not on file Name:Valentin Miller, Date of :1985 Payer ID:[id number] (NAIC) Type:[facility] HMO/PPO Address: [place] [id number] Care Teams Meat Butcher Relationship Specialty Start Date End Date No, Physician PCP - General 08/04/22 No, Physician 08/04/22
--- OUTSIDE RECORDS SUMMARY | 2024-10-24 00:58 | XMS_ITS | Patient Health Summary ---
Author Organization [facility] Address [address] [place] [address] Care Team Providers Care Runner Out Name Role Phone Robert Howell MD Primary Care Provider [phone] Note from [facility],non-owned Affiliates and Associated Physician Practices is amultiple site organization consisting of ambulatory clinics and hospital sitesin [place], [place], [place] and [place]. This disclosure is being madepursuant to the Care Everywhere program and may not contain all information available regarding this patient. Last updated 18.[facility] Allergies No known active allergies Immunizations * INFLUENZA VACCINE, QUADR. (FLUZONE; FLULAVAL; FLUARIX; AFLURIA QUADRIVALENT; 6MO+), 0.5 ML (IIV4)(Given 06/01/2018) Social History Tobacco Use Types Packs/Day Years Used Date Smoking Tobacco: Never Assessed Sex and Gender Information Value Date Recorded Sex Assigned at Not on file Gender Identity Not on file Sexual Orientation Not on file Care Teams Runner Out Relationship Specialty Start Date End Date Robert Howell MD PCP - General Internal Medicine 06/01/18
--- OUTSIDE RECORDS SUMMARY | 2024-10-24 00:58 | XMS_ITS | Referral Summary ---
Author Organization [facility] Address [address] [facility] [place] [address] Care Team Providers Care Xm1 Tank Driver Name Role Phone Robert Howell MD Primary Care Provider [phone] Source Comments [facility],non-owned Affiliates and Associated Physician Practices is amultiple site organization consisting of ambulatory clinics and hospital sitesin [place], [place], [place] and [place]. This disclosure is being madepursuant to the Care Everywhere program and may not contain all information available regarding this patient. Last updated 18.[facility] Allergies No known active allergies Immunizations Name [...] of Treatment Not on file Care Teams Xm1 Tank Driver Relationship Specialty Start Date End Date Robert Howell MD PCP - General Internal Medicine 06/01/18
--- OUTSIDE RECORDS SUMMARY | 2024-10-24 00:58 | XMS_ITS | Clinical Summary ---
Author Organization [facility] Address [address] [place] [address] Care Team Providers Care Client Services Analyst Name Role Phone Robert Howell MD Primary Care Provider [phone] Source Comments [facility],non-owned Affiliates and Associated Physician Practices is amultiple site organization consisting of ambulatory clinics and hospital sitesin [place], [place], [place] and [place]. This disclosure is being madepursuant to the Care Everywhere program and may not contain all information available regarding this patient. Last updated 18.[facility] Allergies No known active allergies Immunizations Name [...] age to complete this topic Care Teams Client Services Analyst Relationship Specialty Start Date End Date Robert Howell MD PCP - General Internal Medicine 06/01/18
--- OUTSIDE RECORDS SUMMARY | 2024-10-24 00:58 | XMS_ITS | Clinical Summary ---
Author Organization [facility] Address [address] [place] [address] Phone Care Team Providers Care Lithographic Artist Name Role Phone Robert Howell MD Primary Care Provider [phone] Social History Tobacco Use Types Packs/Day Years Used Date Smoking Tobacco: Never Assessed Sex and Gender Information Value Date Recorded Sex Assigned at Not on file Legal Sex Male 7:13 AM ACOUSTIC ENGINEER Gender Identity Not on file Sexual Orientation [...] topic Insurance [employer] [place] Care Teams Lithographic Artist Relationship Specialty Start Date End Date Robert Howell MD PCP - General Internal Medicine 10/16/15
--- NOTE | 2024-10-24 11:21 | P.PNAN_ITS ---
Anes - Initial Pre Proc Eval Procedure: Operation Date: 10/24/24 12:00 Proposed Procedures p Robotic Assisted Cholecystectomy - Perlita Villarreal MD Date/Time: 10/24/24 11:21 Surgeon: Perlita Villarreal MD Pre Op Diagnosis: Chr Calculous Cholecystitis Patient Data Age: 39 Gender: M Height: 1.8 m Weight: 88 kg Allergies Allergy/AdvReac Type Severity Reaction Status Date / Time No Known Allergies Allergy Verified 10/16/24 15:04 Home Medications ?Medication ?Instructions ?Recorded ?Confirmed ?Type omeprazole 20 mg capsule,delayed 20 mg PO DAILY 09/11/24 10/16/24 History release magnesium 250 mg tablet 250 mg PO DAILY 10/16/24 10/16/24 History Laboratory Tests 10/24/24 10/24/24 10:34 11:09 Amylase Pending Blood Type Pending Antibody Screen Pending Patient hx anesthesia problems: none Family hx anesthesia problems: none Results Review: All pre-operative results and documents have been reviewed as part of the pre- operative evaluation. [facility] Past Medical History Medical History Cholelithiasis Family history of colon cancer requiring screening colonoscopy Right upper quadrant abdominal pain Family History Family History Other Diabetes mellitus Family history of coronary artery disease Family history of malignant neoplasm of breast Malignant neoplasm of prostate Social History Social History Smoking status: Never smoker Alcohol intake: current Drinks per week: 35 Substance use: never Do You Feel Safe in your Home?: Yes Lack of Transportation: No Lack of Food: Never True Current Housing: I Have Housing Concerned About Future Housing: No Difficulty Paying Gas/Electric Bills: No Difficulty Paying for Meds: No Currently Unemployed: No Education: Bachelor's Degree Difficulty w/ Childcare or Family Care: No Living arrangements: with family Additional living arrangements comments: Spiritual care concerns: No Anes - Eval Final PreProcedure Day of Procedure 10/24/24 11:21 Patient weight: overweight Heart: regular rate and rhythm Lungs: clear to auscultation Airway: Mallampati scale class III Neurological: alert and oriented Last oral intake: >/= 8 hours ASA classification: III Emergent: no Anesthetic plan: proceed Anesthesia type and monitoring: general ETT and standard monitoring Results Review: All pre-operative results and documents have been reviewed as part of the pre-o perative evaluation. Informed Consent: The patient's anesthetic plan and its attendant risks and benefits were discussed with the patient/family/POA. Questions were solicited and answers provided to the satisfaction of the patient/family/POA.
[2024-10-24] MEDS: INDOCYANINE GREEN 25 MG VIAL WITH DILUENT 3.75 MG IV PUSH (11:22)
[2024-10-24] MEDS: ACETAMINOPHEN 500 MG TABLET 1000 MG PO (11:22)
[2024-10-24] MEDS: KETOROLAC 15 MG/ML VIAL (*BKC) IV PUSH (11:25)
[2024-10-24 11:39] LABS: Amylase 57 U/L (30-110)
--- NOTE | 2024-10-24 11:41 | WPDHPUPDATE1 ---
History and Physical Update Update Date/Time: 10/24/24 11:41 History and Physical has been reviewed, including an updated exam of the patient. There are NO changes in the patient's condition. Risks, benefits, and alternatives have been discussed and questions answered. Patient agrees to proceed with procedure.
[2024-10-24] MEDS: ceFAZolin 2 GM/D5W 50 ML 2 GM/50 ML BAG IVPB (11:55)
[2024-10-24] MEDS: BUPIVACAINE/EPINEPHRINE 0.5% 50 ML VIAL 30 ML INFILTRATE (12:24)
--- NOTE | 2024-10-24 12:55 | W.PM.PROC2 ---
Procedure Note - Detailed Date of Procedure 10/24/24 Pre-op Diagnosis Chronic cholecystitis, cholelithiasis Post-op Diagnosis Same Procedure Performed Robotic assisted cholecystectomy Surgeon Perlita Villarreal MD Anesthesia General Indications 39-year-old male presenting to the office complaining of postprandial pain upper abdominal pain, bloating. Workup, including imaging, significant for chronic cholecystitis, cholelithiasis. Findings moderate cholecystitis Description of Procedure The patient was taken to the operating room and placed in the supine position. After adequate induction of general anesthesia, the patient was prepped and draped in the normal sterile fashion. A time-out was then done to verify the patient's identity, as well as the procedure being performed. I began by making a 8 mm incision in the periumbilical region. A Veress needle was then placed in the peritoneal cavity and CO2 gas was insufflated. After adequate pneumoperitoneum was achieved, the Veress needle was removed and a 8 mm Optiview trocar was placed under direct visualization. Once into the abdominal cavity, the introducer was removed and the laparoscope was placed through this trocar site. Under direct visualization, I placed a further 8 mm port in the left mid abdomen and 2 additional 8 mm ports in the right mid abdomen. The robot was then docked to these ports sites. I then went to the console. The gallbladder was then identified and noted to be moderately inflamed. I was able to place a grasper at the dome of the gallbladder and this was retracted up and over the liver. A 2nd retractor was used to grasp the infundibulum and retracted laterally. This allowed visualization and dissection of the triangle of Calot. There were some omental adhesions to the gallbladder and these were taken down with the cautery. I then began dissection around the triangle Calot. I first identified the cystic duct, I was able to visualize the entirety of the duct from its proximal insertion into the gallbladder to its distal junction with the common hepatic/common bile duct junction. I then used the firefly visualization at this point to confirm the anatomy. The proximal cystic duct was then further skeletonized, clipped, and transected. Next I visualized the cystic artery. Again the structure was skeletonized, clipped, and transected. I then again used firefly to confirm anatomy and no aberrant anatomy was noted. I then used the Bovie cautery to take down the peritoneal attachments of the gallbladder off the liver bed. Once the gallbladder specimen was completely detached, an Endo pouch was placed through the left 8 mm port site and the gallbladder specimen was placed in the endo-pouch and subsequently removed. Of note, I made a cholecystostomy and decompressed the gallbladder to facilitate removal. I then re-examined the right upper quadrant. Hemostasis was noted in the liver bed and the clips were noted to be in good position on both the duct and the artery. No other pathology was seen in the right upper quadrant. All instruments were then removed and the robot was undocked. The abdomen was then desufflated and all ports were removed. All port sites were then closed with 4-0 Monocryl subcuticular suture. Dermabond was placed on each was wound. The patient tolerated the procedure well and was extubated in the operating room postop. The patient will now be transferred to the recovery room in stable condition. Estimated Blood Loss 5 Drains No Packing No Pathology Yes Complications No immediate complications Condition Stable Disposition PACU [facility] Billing Surgery - Charge Forward: Surgery Billing
[2024-10-24] MEDS: LACTATED RINGERS 1,000 ML 30 ML IV CONT ×2 (13:06→13:29)
[2024-10-24] MEDS: fentaNYL CITRATE INJ (*CRX) 100 MCG/2 ML VIAL 25 MCG IV PUSH ×8 (13:15→13:58)
[2024-10-24] MEDS: oxyCODONE HCL (*CRX) 5 MG TAB IR PO (14:15)
== END 2024-10-24 15:00 | disposition home or self-care (01) ==
PROVIDERS: PCP Nurse Practitioner Adult Health; Visit Provider Surgery
PROC: 0FT44ZZ Resection of Gallbladder, Percutaneous Endoscopic Approach (ICD-10-PCS; CPT 47562; principal; 2024-10-24 12:00)
DX: K80.20 Calculus of gallbladder without cholecystitis without obstruction (principal)
CPT/HCPCS: 47562; S2900; 36415; 82150; 86850; 86900; 86901; 88304; A9270; J0690; J1100; J1885; J2003; J2250; J2405; J2704; J3010; J7030; J7120

== ENCOUNTER 2025-02-03 05:55 | Day surgery (SDC) | payer OTHER, SELFPAY ==
[2024-09-13 13:34] VITALS: BMI 27.6
--- OUTSIDE RECORDS SUMMARY | 2025-02-03 06:08 | XMS_ITS | Clinical Summary ---
Author Organization [facility] Address [facility] [place] [address] Care Team Providers Care Storage Consultant Name Role Phone Unavailable Primary Care Provider [...] 02/21/2003 COVID-19 Vaccine (2023-2 5 season) 2024 HPV Vaccines Aged Out No longer eligi ble based on patient's age to complete this topic Meningococcal B Vaccine Aged Out No l onger eligible based on patient's age to complete this topic Meningococcal Vaccine Aged Out No desiree miracle eligible based on patient's age to complete this topic Pneumococcal Vaccine: Pediat rics (0 to 5 Years) and At-Risk Patients (6 to 49 Years) Aged Out No longer eligible b ased on patient's age to complete this topic RSV Immunizations Under 20 Months Aged Out No longer eligible based on patient's age to complete this topic
--- OUTSIDE RECORDS SUMMARY | 2025-02-03 06:08 | XMS_ITS | Clinical Summary ---
Author Organization [facility] Address [address] [place] [address] Care Team Providers Care Primary Class Teacher Name Role Phone Robert Howell MD Primary Care Provider Source Comments [facility],non-owned Affiliates and Associated Physician Practices is amultiple site organization consisting of ambulatory clinics and hospital sitesin [place], [place], [place] and [place]. This disclosure is being madepursuant to the Care Everywhere program and may not contain all information available regarding this patient. Last updated 18.[facility] Allergies No known active allergies Immunizations Immunization Administration Dates Next Due INFLUENZA VACCINE, QUADR. (F LUZONE; FLULAVAL; FLUARIX; AFLURIA QUADRIVALENT; 6MO+), 0.5 ML (IIV4) 06/01/2018 Social History Tobacco Use Types Packs/Day Years Used Date Smoking Tobacco: Never Assessed Sex and Gender Information Value Date Recorded Sex Assigned at Not on file Legal Sex Male 1:55 PM DIGITAL PHOTOGRAPHIC PRINTER Gender Identity Not on file Sexual Orientation Not on file Plan of Treatment Health Maintenance Due Date Last Done Comments LIPID TESTING 1984 HIV SCREENING 02/21/1999 HEPATITIS C SCREENING 02/17/2002 DTAP/TDAP/TD VACCINES (1 - Tdap) 02/21/2003 HEPATITIS B VACCINE (1 of 3 - 19+ 3-dose series) 02/21/2003 COVID-19 VACCINE ( - 2023-2 5 season) 2024 DEPRESSION SCREENING 08/21/2024 INFLUENZA VACCINE (Season Ended) 2025 06/01/20 18 ZOSTER VACCINE (1 of 2) 02/21/2034 HIB VACCINE Aged Out No longer eligi ble based on patient's age to complete this topic HPV VACCINE Aged Out No longer eligi ble based on patient's age to complete this topic MENINGOCOCCAL (Group B) VACC INE SHARED DECISION-MAKING Aged Out No longer eligibl e based on patient's age to complete this topic MENINGOCOCCAL GROUPS A/C/Y/W VACCINE Aged Out No longer eligible b ased on patient's age to complete this topic PNEUMOCOCCAL VACCINE Aged Out No long er eligible based on patient's age to complete this topic Insurance [facility] SELF PAY NO INSURANCE Member Subscriber Plan / Payer (Ef fective for All Dates) Name:Valentin Miller Jr. Member ID:Not on file Relation to Subscriber:Not on file Name:VALENTIN MILLER Subscriber ID:Not on file (Home) Address: [address] [place] [address] [place] [address] Payer ID:Not on file Group ID:Not on file Type:Self Pay Address: [facility] Care Teams Primary Class Teacher Relationship Specialty Start Date End Date Robert Howell MD PCP - General Internal Medicine 06/01/18
--- OUTSIDE RECORDS SUMMARY | 2025-02-03 06:09 | XMS_ITS | Clinical Summary ---
Author Organization [facility] Address [address] [place] [address] Care Team Providers Care Cement Breaker Name Role Phone No, Physician Primary Care Provider [phone] No, Physician Unavailable Allergies No known active allergies Medications No known medications Active Problems No known active problems Social History Tobacco Use Types Packs/Day Years Used Date Smoking Tobacco: Never Tobacco Cessation:Counseling Given: Not Answered Sex and Gender Information Value Date Recorded Sex Assigned at Not on file Legal Sex Male 10:27 AM PANAMA HAT SMEARER Gender Identity Male 08/04/2022 1:42 PM PANAMA HAT SMEARER Sexual Orientation Straight 08/04/2022 1: 42 PM PANAMA HAT SMEARER Obstetrics History Last Filed Vital Signs Vital Sign Reading Time Taken Comments Blood Pressure 119/86 08/04/2022 9:37 AM PANAMA HAT SMEARER Pulse 101 08/04/2022 9:37 AM PANAMA HAT SMEARER Temperature 36.8 C (98.3 F) 08/04/2022 9:37 AM PANAMA HAT SMEARER Respiratory Rate 16 08/04/2022 9:37 AM PANAMA HAT SMEARER Oxygen Saturation 95% 08/04/2022 9:37 AM PANAMA HAT SMEARER Inhaled Oxygen Concentration - - Weight 91.2 kg (201 lb) 08/04/2022 9:37 AM PANAMA HAT SMEARER Height 177.8 cm (5' 10) 08/04/2022 9:37 AM PANAMA HAT SMEARER Body Mass Index 28.84 08/04/2022 9:37 AM PANAMA HAT SMEARER Plan of Treatment Health Maintenance Due Date Last Done Comments Depression Screening 1984 Hepatitis C Screening 1984 DTaP/Tdap/Td Vaccine (1 - Tdap) 02/21/1995 Varicella Vaccines (1 of 2 - 13+ 2-dose series) 02/21/1997 Hepatitis B Screening 02/21/2002 Regular Well Visit/Exam 18-64 02/21/2002 Covid-19 Vaccine ( season) 2024 06/08/2021, 10/27/2020, 10/06/2020 Influenza Vaccine (Season Ended) 2025 06/17/2021, 06/11/2020, 06/14/2019, Additional history exists HPV Vaccines Aged Out No longer eligi ble based on patient's age to complete this topic Pneumococcal vaccine <65 Aged Out No longer eligible based on patient's age to complete this topic Insurance UHC CHOICE PLUS [facility] CHOICE PLUS Member Subscriber Plan / Payer (Ef fective 2021-Present) Name:Valentin Miller Relation to Subscriber:Self Name:Valentin Miller Payer ID:[id number] (NAIC) Type:[facility] HMO/PPO Address: [place] [phone] [facility] CHOICE PLUS Care Teams Cement Breaker Relationship Specialty Start Date End Date No, Physician PCP - General 08/04/22 No, Physician 08/04/22
--- OUTSIDE RECORDS SUMMARY | 2025-02-03 06:09 | XMS_ITS | Referral Summary ---
Author Organization [facility] Address [address] [place] [id number] Care Team Providers Care Angle Bender Name Role Phone No, Physician Primary Care Provider [phone] No, Physician Unavailable Allergies No known active allergies Medications No known medications Active Problems No known active problems Social History Tobacco Use Types Packs/Day Years Used Date Smoking Tobacco: Never Tobacco Cessation:Counseling Given: Not Answered Sex and Gender Information Value Date Recorded Sex Assigned at Not on file Legal Sex Male 10:27 AM R D INTERN Gender Identity Male 08/04/2022 1:42 PM R D INTERN Sexual Orientation Straight 08/04/2022 1: 42 PM R D INTERN Last Filed Vital Signs Vital Sign Reading Time Taken Comments Blood Pressure 119/86 08/04/2022 9:37 AM R D INTERN Pulse 101 08/04/2022 9:37 AM R D INTERN Temperature 36.8 C (98.3 F) 08/04/2022 9:37 AM R D INTERN Respiratory Rate 16 08/04/2022 9:37 AM R D INTERN Oxygen Saturation 95% 08/04/2022 9:37 AM R D INTERN Inhaled Oxygen Concentration - - Weight 91.2 kg (201 lb) 08/04/2022 9:37 AM R D INTERN Height 177.8 cm (5' 10) 08/04/2022 9:37 AM R D INTERN Body Mass Index 28.84 08/04/2022 9:37 AM R D INTERN Plan of Treatment Not on file [place] [address] [place] [id number] [facility] CHOICE PLUS [facility] CHOICE PLUS [facility] CHOICE PLUS Care Teams Angle Bender Relationship Specialty Start Date End Date No, Physician PCP - General 08/04/22 No, Physician 08/04/22
--- OUTSIDE RECORDS SUMMARY | 2025-02-03 06:09 | XMS_ITS | Clinical Summary ---
Author Organization [facility] Address [address] [place] [address] Phone Care Team Providers Care Accounting Professor Name Role Phone Robert Howell MD Primary Care Provider [phone] Social History Tobacco Use Types Packs/Day Years Used Date Smoking Tobacco: Never Assessed Sex and Gender Information Value Date Recorded Sex Assigned at Not on file Legal Sex Male 7:13 AM FIRST COOK Gender Identity Not on file Sexual Orientation [...] topic Insurance [employer] [place] Care Teams Accounting Professor Relationship Specialty Start Date End Date Robert Howell MD PCP - General Internal Medicine 10/16/15
[2025-02-03 06:22] VITALS: BMI 27.5
[2025-02-03 06:23] VITALS: BP 128/101; PULSE 95; RESP 16; TEMP 36.2; O2SAT 97
--- OUTSIDE RECORDS SUMMARY | 2025-02-03 06:45 | XMS_ITS | Referral Summary ---
Author Organization [facility] Address [address] [place] [phone] Care Team Providers Care Epic Cupid Analyst Name Role Phone No, Physician Primary Care Provider [phone] No, Physician Unavailable Allergies No known active allergies Medications No known medications Active Problems No known active problems Social History Tobacco Use Types Packs/Day Years Used Date Smoking Tobacco: Never Tobacco Cessation:Counseling Given: Not Answered Sex and Gender Information Value Date Recorded Sex Assigned at Not on file Legal Sex Male 10:27 AM PROVIDER RELATIONS COORDINATOR Gender Identity Male 08/04/2022 1:42 PM PROVIDER RELATIONS COORDINATOR Sexual Orientation Straight 08/04/2022 1: 42 PM PROVIDER RELATIONS COORDINATOR Last Filed Vital Signs Vital Sign Reading Time Taken Comments Blood Pressure 119/86 08/04/2022 9:37 AM PROVIDER RELATIONS COORDINATOR Pulse 101 08/04/2022 9:37 AM PROVIDER RELATIONS COORDINATOR Temperature 36.8 C (98.3 F) 08/04/2022 9:37 AM PROVIDER RELATIONS COORDINATOR Respiratory Rate 16 08/04/2022 9:37 AM PROVIDER RELATIONS COORDINATOR Oxygen Saturation 95% 08/04/2022 9:37 AM PROVIDER RELATIONS COORDINATOR Inhaled Oxygen Concentration - - Weight 91.2 kg (201 lb) 08/04/2022 9:37 AM PROVIDER RELATIONS COORDINATOR Height 177.8 cm (5' 10) 08/04/2022 9:37 AM PROVIDER RELATIONS COORDINATOR Body Mass Index 28.84 08/04/2022 9:37 AM PROVIDER RELATIONS COORDINATOR Plan of Treatment Not on file [place] [address] [place] [id number] [facility] CHOICE PLUS [facility] CHOICE PLUS [facility] CHOICE PLUS Care Teams Epic Cupid Analyst Relationship Specialty Start Date End Date No, Physician PCP - General 08/04/22 No, Physician 08/04/22
--- OUTSIDE RECORDS SUMMARY | 2025-02-03 06:45 | XMS_ITS | Clinical Summary ---
Author Organization [facility] Address [facility] [place] [address] Care Team Providers Care Presto Log Operator Name Role Phone Unavailable Primary Care Provider [...]
--- OUTSIDE RECORDS SUMMARY | 2025-02-03 06:45 | XMS_ITS | Clinical Summary ---
Author Organization [facility] Address [address] [place] [address] Phone Care Team Providers Care Correctional Agency Director Name Role Phone Robert Howell MD Primary Care Provider [phone] Social History Tobacco Use Types Packs/Day Years Used Date Smoking Tobacco: Never Assessed Sex and Gender Information Value Date Recorded Sex Assigned at Not on file Legal Sex Male 7:13 AM HEALTHCARE BUSINESS ANALYST Gender Identity Not on file Sexual Orientation [...] topic Insurance [place] [place] [place] Care Teams Correctional Agency Director Relationship Specialty Start Date End Date Robert Howell MD PCP - General Internal Medicine 10/16/15
--- OUTSIDE RECORDS SUMMARY | 2025-02-03 06:45 | XMS_ITS | Clinical Summary ---
Author Organization [facility] Address [address] [place] [phone] Care Team Providers Care Nocturnist Name Role Phone No, Physician Primary Care Provider [phone] No, Physician Unavailable Allergies No known active allergies Medications No known medications Active Problems No known active problems Social History Tobacco Use Types Packs/Day Years Used Date Smoking Tobacco: Never Tobacco Cessation:Counseling Given: Not Answered Sex and Gender Information Value Date Recorded Sex Assigned at Not on file Legal Sex Male 10:27 AM STRAIGHTEDGE WORKER Gender Identity Male 08/04/2022 1:42 PM STRAIGHTEDGE WORKER Sexual Orientation Straight 08/04/2022 1: 42 PM STRAIGHTEDGE WORKER Obstetrics History Last Filed Vital Signs Vital Sign Reading Time Taken Comments Blood Pressure 119/86 08/04/2022 9:37 AM STRAIGHTEDGE WORKER Pulse 101 08/04/2022 9:37 AM STRAIGHTEDGE WORKER Temperature 36.8 C (98.3 F) 08/04/2022 9:37 AM STRAIGHTEDGE WORKER Respiratory Rate 16 08/04/2022 9:37 AM STRAIGHTEDGE WORKER Oxygen Saturation 95% 08/04/2022 9:37 AM STRAIGHTEDGE WORKER Inhaled Oxygen Concentration - - Weight 91.2 kg (201 lb) 08/04/2022 9:37 AM STRAIGHTEDGE WORKER Height 177.8 cm (5' 10) 08/04/2022 9:37 AM STRAIGHTEDGE WORKER Body Mass Index 28.84 08/04/2022 9:37 AM STRAIGHTEDGE WORKER Plan of Treatment Health Maintenance Due Date [...] complete this topic Insurance UHC CHOICE PLUS [facility] HMO/PPO Address: [address] [place] [address] [facility] HMO/PPO Address: [address] [address] [place] [address] [facility] CHOICE PLUS [facility] HMO/PPO Address: [place] [phone] [facility] CHOICE PLUS [facility] HMO/PPO Address: [address] [address] Care Teams Nocturnist Relationship Specialty Start Date End Date No, Physician PCP - General 08/04/22 No, Physician 08/04/22
--- OUTSIDE RECORDS SUMMARY | 2025-02-03 06:45 | XMS_ITS | Clinical Summary ---
Author Organization [facility] Address [address] [place] [address] Care Team Providers Care Plumber Assistant Name Role Phone Robert Howell MD Primary Care Provider [phone] Source Comments [facility],non-owned Affiliates and Associated Physician Practices is amultiple site organization consisting of ambulatory clinics and hospital sitesin [place], [place], [place] and [place]. This disclosure is being madepursuant to the Care Everywhere program and may not contain all information available regarding this patient. Last updated 18.[facility] [employer] Allergies No known active allergies Immunizations Immunization Administration Dates Next Due INFLUENZA VACCINE, QUADR. (F LUZONE; FLULAVAL; FLUARIX; AFLURIA QUADRIVALENT; 6MO+), 0.5 ML (IIV4) 06/01/2018 Social History Tobacco Use Types Packs/Day Years Used Date Smoking Tobacco: Never Assessed Sex and Gender Information Value Date Recorded Sex Assigned at Not on file Legal Sex Male 1:55 PM FIREWOOD CUTTER Gender Identity Not on file Sexual Orientation [...] patient's age to complete this topic Insurance [facility] SELF PAY NO INSURANCE Member Subscriber Plan / Payer (Ef fective for All Dates) Name:Valentin Miller Jr. Member ID:Not on file Relation to Subscriber:Not on file Name:VALENTIN MILLER Subscriber ID:Not on file (Home) Address: [address] [place] [address] [place] [address] Payer ID:Not on file Group ID:Not on file Type:Self Pay Address: [facility] Care Teams Plumber Assistant Relationship Specialty Start Date End Date Robert Howell MD PCP - General Internal Medicine 06/01/18
--- NOTE | 2025-02-03 06:58 | P.PNAN_ITS ---
Anes - Eval Final PreProcedure Day of Procedure 02/03/25 06:58 Heart: regular rate and rhythm Lungs: clear to auscultation Airway: Mallampati scale class 1 Last oral intake: >/= 8 hours ASA classification: II Anesthetic plan: proceed Anesthesia type and monitoring: monitored anesthesia care Results Review: All pre-operative results and documents have been reviewed as part of the pre- operative evaluation. Informed Consent: The patient's anesthetic plan and its attendant risks and benefits were discussed with the patient/family/POA. Questions were solicited and answers provided to the satisfaction of the patient/family/POA.
[2025-02-03] MEDS: LACTATED RINGERS 1,000 ML 150 ML IV CONT (07:24)
--- NOTE | 2025-02-03 07:33 | PM.IMHP ---
H&P: HPI History of Present Illness Date/Time: 02/03/25 07:33 Chief Complaint: screening colonoscopy Narrative: This is the patient's first colonoscopy. TThis patient has family history of colorectal cancer, his grandmother had colorectal cancer. Review of Systems Review of Systems: All systems reviewed & are unremarkable except as noted in HPI and below PMFSH Past Medical History Medical History Cholelithiasis Family history of colon cancer requiring screening colonoscopy Right upper quadrant abdominal pain Surgical History Surgical History Hx laparoscopic cholecystectomy 10/24/[address] Villarreal Family History Family History Other Diabetes mellitus Family history of coronary artery disease Family history of malignant neoplasm of breast Malignant neoplasm of prostate Social History Social History Smoking status: Never smoker Alcohol intake: current Drinks per week: 35 Substance use: never Substance use type: does not use Do You Feel Safe in your Home?: Yes Lack of Transportation: No Lack of Food: Never True Current Housing: I Have Housing Concerned About Future Housing: No Difficulty Paying Gas/Electric Bills: No Difficulty Paying for Meds: No Currently Unemployed: No Education: Bachelor's Degree Difficulty w/ Childcare or Family Care: No Living arrangements: with family Additional living arrangements comments: Spiritual care concerns: No Meds Home Medications and Allergies Home Medications ?Medication ?Instructions ?Recorded ?Confirmed ?Type omeprazole 20 mg capsule,delayed 20 mg PO DAILY 09/11/24 02/03/25 History release magnesium 250 mg tablet 250 mg PO DAILY 10/16/24 02/03/25 History Allergies Allergy/AdvReac Type Severity Reaction Status Date / Time No Known Allergies Allergy Verified 02/03/25 06:13 Vital Signs Vital Signs - 24 hr 02/03/25 06:23 Temperature 97.2 F L Pulse Rate 95 Respiratory Rate 16 Blood Pressure 128/101 H Pulse Oximetry 97 Oxygen Delivery Room Air Exam Const: General: cooperative and healthy appearing Resp: Effort & Inspection: normal respiratory effort and able to speak in complete sentences Auscultation: clear to auscultation bilaterally Cardio: Rate: regular rate Rhythm: regular rhythm GI: Inspection: normal to inspection GI Palp: No No hepatosplenomegaly present Auscultation: normal bowel sounds Rectal Exam: deferred Skin: General skin exam: normal color Psych: Appearance: grossly normal Mental Status: mental status grossly normal Assessment and Plan Assessment and plan (1) Family history of colon cancer requiring screening colonoscopy: Code(s): Z80.0 - Family history of malignant neoplasm of digestive organs Status: Acute Assessment and Plan: The patient is deemed a good candidate for the procedure. Consent signed. Will proceed.
[2025-02-03] MEDS: SIMETHICONE ORAL SUSPENSION 20 MG/0.3 ML 30 ML BOTTLE 0.6 ML IRRIGATION (07:46)
[2025-02-03 08:01] VITALS: BP 102/80; PULSE 75; RESP 16; O2SAT 100
--- NOTE | 2025-02-03 08:05 | WPDANESPN ---
Anes - Prog Note Post-Op Date/Time: 02/03/25 08:05 Vital Signs: Last Vital Signs Temp 97.2 F L 02/03/25 06:23 Pulse 75 02/03/25 08:01 Resp 16 02/03/25 08:01 BP 102/80 02/03/25 08:01 Pulse Ox 100 02/03/25 08:01 O2 Del Method Room Air 02/03/25 08:01 Pain Score (VAS): no pain I/O: Intake & Output 02/02/25 02/03/25 02/03/25 23:59 07:59 15:59 Intake Total 200 Balance 200 Patient Feedback: Patient satisfied with anesthetic care.
[2025-02-03 08:11] VITALS: BP 112/84; PULSE 80; RESP 18; O2SAT 100
[2025-02-03 08:21] VITALS: BP 110/84; PULSE 76; RESP 18; O2SAT 100
== END 2025-02-03 08:28 | disposition home or self-care (01) ==
PROVIDERS: PCP Family Medicine; Referring Provider Nurse Practitioner Adult Health; Visit Provider Internal Medicine Gastroenterology
PROC: 0DJD8ZZ Inspection of Lower Intestinal Tract, Via Natural or Artificial Opening Endoscopic (ICD-10-PCS; CPT 45378; principal; 2025-02-03 07:30)
DX: Z12.11 Encounter for screening for malignant neoplasm of colon (principal); K57.30 Diverticulosis of large intestine without perforation or abscess without bleeding; Z80.0 Family history of malignant neoplasm of digestive organs
CPT/HCPCS: 45378